=== PATIENT | female | born 1975 | race Caucasian/White ===

== ENCOUNTER 2024-09-29 09:32 | Day surgery (SDC) | payer BC ==
[2024-09-29] MEDS: Lactated Ringers 1,000 ML IV SCH (09:00)
[2024-09-29] MEDS: oxyCODONE ER 10 MG TAB.ER PO SCH (09:31)
[~2024-09-29 09:32] MED LIST: Morphine 8 MG, EPINEPHrine 0.3 MG, Cefuroxime 750 MG, Ketorolac 30 MG, Sodium Chloride ... PRN; Sodium Chloride 0.9% 10 ML Syringe FLUSH PRN; Sodium Chloride 0.9% 10 ML Syringe FLUSH SCH
[2024-09-29] MEDS: Clindamycin Phosphate in D5W 900 MG in Premix Bag 1 BAG IV ONE (09:34)
[2024-09-29] MEDS ORDERED: Ondansetron 4 MG/2 ML SDV ONE (10:05)
[2024-09-29] MEDS ORDERED: propofoL 500 MG/50 ML 50 ML ONE ×2 (10:05→10:52)
[2024-09-29] MEDS ORDERED: Midazolam 1 MG/ML 2 ML SDV ONE (10:05)
[2024-09-29] MEDS ORDERED: fentaNYL 100 MCG/2 ML SDV ONE (10:44)
[2024-09-29] MEDS ORDERED: Succinylcholine 200 MG/10 ML MDV ONE (10:44)
[2024-09-29] MEDS ORDERED: Phenylephrine 1% 10 MG/ML SDV ONE (10:47)
[2024-09-29] MEDS: Morphine 8 MG, EPINEPHrine 0.3 MG, Ketorolac 30 MG, Sodium Chloride 0.9% 7.9 ML PRN (11:26)
[2024-09-29] MEDS ORDERED: Lactated Ringers 1,000 ML ONE (11:37)
[2024-09-29] MEDS ORDERED: Ropivacaine 0.5% 5 MG/ML 30 ML SDV ONE (11:57)
[2024-09-29] MEDS ORDERED: dexmedeTOMIDine HCl 200 MCG/2 ML SDV ONE (11:57)
[2024-09-29] MEDS ORDERED: Ketorolac 30 MG/ML SDV IVPUSH PRN (12:13)
[2024-09-29] MEDS ORDERED: fentaNYL 100 MCG/2 ML SDV IVPUSH PRN (12:13)
[2024-09-29] MEDS: Ondansetron 4 MG/2 ML SDV IVPUSH PRN (12:44)
[2024-09-29] MEDS ORDERED: Dexamethasone 4 MG/ML 5 ML MDV ONE (13:47)
[2024-09-29] MEDS ORDERED: diphenhydrAMINE 50 MG/ML SDV ONE (13:47)
== END 2024-09-29 16:08 | disposition home or self-care (01) ==
LOC: JD.SDS 09:32
PROVIDERS: ATTEND Orthopaedic Surgery
DX: M17.12 Unilateral primary osteoarthritis, left knee (principal); Z79.899 Other long term (current) drug therapy
CPT/HCPCS: 0055T; 27447; 64447; 73560; 97116; 97161; 97530; A9270; C1713; C1776; J0169; J0330; J0736; J1100; J1200; J1885; J2250; J2272; J2371; J2405; J2704; J2795; J3010; J3373; J7120; 01402; J3490